=== PATIENT | male | born 1985 | race Native Hawaiian/Other Pacific Islander ===

== ENCOUNTER 2016-10-17 18:28 | Emergency (ER) | payer OTHER ==
[2016-10-17 18:35] VITALS: BP 131/78; PULSE 78; RESP 20; TEMP 98.1; O2SAT 98
--- NOTE | 2016-10-17 20:00 | ED PDOC ---
Syncope/Near Syncope/Dizzyness Time Seen by Provider: 10/17/16 19:12 Chief Complaint (Nursing): Dizziness/Lightheaded Chief Complaint (Provider): SAME History Per: Patient History/Exam Limitations: no limitations Onset/Duration Of Symptoms: Intermittent Episodes (for 1 month) Current Symptoms Are (Timing): Still Present Additional Complaint(s): 31M p/w 1 month of intermittent non-positional dizziness not associated with tinnitus/hearing changes or medications associated with entire body weakness and feeling like he will "pass out" but denies ever passing out/LOC. Some episodes are associated with nausea never vomiting. Patient feels these symptoms are related to his recent irregular eating habits as all symptoms resolve with eating. Last episode today that improved with some crackers and pedialyte. In addition, chills today that he took combiphlegm for, but never measured an elevated temperature. - ve: SOB, diaphoresis, chest pain, palpitations/racing heart, visual/speech changes, unilateral weakness, hypotension, flushing, diarrhea Recent Travel: Yes from [place], car, frequent stops, [address] with co- workers PMD: None PMH: None PSH: None PFH: No similar symptoms ALL: NKDA Meds: Combiphlegm Employed by [employer] Smoke: Denies Alcohol: Denies Drugs: Denies Vegetarian - Symptoms Of CVA Recent Aspirin Use: No Current Coumadin Use?: No Recent Head Trauma: No - Risk Factors PE Risk Factors: Pos: Decreased Mobilty /Activity Neg: Extremity Immobilization/Fx, Recent Hospitalization, Previous DVT, Previous PE, Venous Stasis Past Medical History Vital Signs: Last Vital Signs Temp 36.7 C 10/17/16 18:33 Pulse 78 10/17/16 18:33 Resp 20 10/17/16 18:33 BP 131/78 10/17/16 18:33 Pulse Ox 98 10/17/16 18:33 - Family History Family History: States: Diabetes, Hypertension - Immunization History Hx Tetanus Toxoid Vaccination: No Hx Influenza Vaccination: No Hx Pneumococcal Vaccination: No - Home Medications Home Medications: Ambulatory Orders Medication Instructions Recorded Meclizine [Antivert] 25 mg PO Q6 PRN #20 tab 10/17/16 - Allergies Allergies/Adverse Reactions: Allergies Allergy/AdvReac Type Severity Reaction Status Date / Time No Known Allergies Allergy Verified 10/17/16 18:32 Review of Systems ROS Statement: Except As Marked, All Systems Reviewed And Found Negative (As per HPI) Physical Exam - Reviewed Vital Signs Reviewed: Yes (WNL) - Physical Exam Appears: Positive for: Well, Non-toxic, No Acute Distress Head Exam: Positive for: ATRAUMATIC, NORMAL INSPECTION Skin: Positive for: Normal Color, Warm, Dry Eye Exam: Positive for: Normal appearance, EOMI, PERRL. Negative for: Nystagmus , Conjunctival injection ENT: Positive for: Normal ENT Inspection, Pharynx Is (clear), TM Is/Are (wnl, no effusion). Negative for: Sinus Pain/Drainage, Pharyngeal Erythema, Tonsillar Exudate, Tonsillar Swelling Neck: Positive for: Normal, Painless ROM, Supple Cardiovascular/Chest: Positive for: Regular Rate, Rhythm, Chest Non Tender. Negative for: Murmur Respiratory: Positive for: Normal Breath Sounds. Negative for: Accessory Muscle Use, Crackles, Rales, Rhonchi, Wheezing, Respiratory Distress Pulses-Dorsalis Pedis (L): 2+ Pulses-Dorsalis Pedis (R): 2+ Pulses-Post. Tibialis (L): 2+ Pulses-Post. Tibialis (R): 2+ Pulses-Radial (L): 2+ Pulses-Radial (R): 2+ Gastrointestinal/Abdominal: Positive for: Normal Exam, Bowel Sounds, Soft. Negative for: Tenderness, Mass, Rebound Back: Positive for: Normal Inspection. Negative for: L CVA Tenderness, R CVA Tenderness, Vertebral Tenderness, Muscle Spasm Extremity: Positive for: Normal ROM, Capillary Refill. Negative for: Pedal Edema, Calf Tenderness, Swelling Neurologic/Psych: Positive for: Alert, consultative sales associate II-XII, Oriented. Negative for: Motor/Sensory Deficits - Laboratory Results Result Diagrams: 10/17/16 21:20 10/17/16 21:20 - ECG ECG: Positive for: Interpreted By Me (NSR, HR-68, no ST-T abnormalities noted) ECG Rhythm: Positive for: Normal ST Segment, Sinus Rhythm O2 Sat by Pulse Oximetry: 98 Medical Decision Making Medical Decision Making: Stress induced vs. transient hypoglycemia vs. URI EKG CBC CMP Utox EtOH Accu-check:92 D-dimer Influenza Pt re-check: Labs wnl EKG wnl Alcohol: neg Influenza: Negative Utox: negative Disposition - Clinical Impression Clinical Impression: Vertigo - Patient ED Disposition Is Patient to be Admitted: No Counseled Patient/Family Regarding: Studies Performed, Diagnosis, Need For Followup, Rx Given - Disposition Disposition: Routine/Home Disposition Time: 22:58 Condition: STABLE Additional Instructions: You need to follow up with a primary care provider for further evaluation. Recommend having snacks readily available for symptoms Prescriptions: Meclizine [Antivert] 25 mg PO Q6 PRN #20 tab PRN Reason: Dizziness Instructions: Lightheadedness (ED), Dizziness (ED)
[2016-10-17 21:37] LABS: BASO % 0.5 % (0.0-2.0); EOS # 0.2 K/uL (0.0-0.7); EOS % 1.6 % (0.0-4.0); LYMPH # 1.7 K/uL (1.0-4.3); LYMPH % 17.9 % (20.0-40.0); MEAN CELL VOLUME 79.3 fl (80.0-94.0); MEAN CORPUSCULAR HGB CONC 32.8 g/dL (33.0-37.0); MEAN PLATELET VOLUME 9.2 fl (7.2-11.7); MONO # 0.7 K/uL (0.0-0.8); MONO % 7.1 % (0.0-10.0); NEUT # 6.9 K/uL (1.8-7.0); NEUT % 72.9 % (50.0-75.0); NRBC % 0.1 % (0.0-0.0); RED CELL DISTRIBUTION WIDTH 13.1 % (11.5-14.5); WHITE BLOOD COUNT 9.4 K/uL (4.8-10.8)
[2016-10-17 21:46] LABS: ALB/GLOB RATIO 1.3 (1.0-2.1); ALCOHOL SERUM < 10 mg/dl (0-10); ALKALINE PHOSPHATASE 72 U/L (38-126); ALT/SGPT 68 U/L (21-72); AST/SGOT 34 U/L (17-59); BILIRUBIN,TOTAL 0.5 mg/dl (0.2-1.3); BLOOD UREA NITROGEN 11 mg/dl (9-20); CALCIUM 9.2 mg/dL (8.4-10.2); CARBON DIOXIDE 22 mmol/L (22-30); CHLORIDE 106 mmol/L (98-107); GFR AFRICAN-AMERICAN > 60; GLUCOSE,RANDOM 88 mg/dL (75-110); POTASSIUM 4.1 MMOL/L (3.6-5.0); SODIUM 145 mmol/l (132-148); TOTAL PROTEIN 7.5 G/DL (6.3-8.2)
--- NOTE | 2016-10-18 14:36 | CARD ---
APPROVED REPORT EKG Measurement Heart [id number] CT [id number] <Conclusion> Normal sinus rhythm Normal ECG
== END 2016-10-17 23:10 | disposition home or self-care (01) ==
LOC: H.ER 18:28
DX: R42 Dizziness and giddiness (principal)